=== PATIENT | female | born 1945 | race Caucasian/White ===

== ENCOUNTER 2020-11-12 08:30 | Day surgery (SDC) | payer OTHER, SELFPAY ==
[2020-11-12 09:06] VITALS: BP 141/59; PULSE 61; RESP 16; TEMP 35.9; O2SAT 99
[2020-11-12] MEDS: Tropicam./Phenyleph. (1/2.5%) 5 ML BTL OS ×3 (09:14→09:23)
--- NOTE | 2020-11-12 09:24 | W.ANESPRE ---
General Info Date of Service Date Performed: 11/12/20 Height: 5 ft 1.5 in Weight: 75.1 kg Body Mass Index (BMI): 30.7 Surgical Procedure: Operation Date: 11/12/20 11:40 Proposed Procedures Side Surgeon p Cataract Extraction with IOL Implant Left Ashkan Sanchez MD Meds Allergies and Home Medications Allergies Allergy/AdvReac Type Severity Reaction Status Date / Time esomeprazole AdvReac Intermediate Skin Rash Unverified 11/12/20 09:04 omeprazole AdvReac Intermediate Skin Rash Unverified 11/12/20 09:04 paraben AdvReac Intermediate Skin Rash Unverified 11/12/20 09:04 procaine AdvReac Intermediate Other (See Unverified 11/12/20 09:04 Comment) Home Medication Medication Instructions Recorded chlorthalidone 12.5 mg PO DAILY 11/08/20 pantoprazole 40 mg PO BID 11/08/20 Current Visit Medications: Current Medications Generic Name Dose Route Start Last Admin Trade Name Freq PRN Reason Stop Dose Admin Acetaminophen 1,000 mg 11/12/20 06:00 Acetaminophen 500 Mg Tab PO Q4H PRN PRN Miscellaneous Medication 0 ml 11/12/20 06:00 Prednisolone 1%, Moxifloxacin 0.5%, Nepafenac 0.1% 5ml Btl OS DIRECTED YADI Miscellaneous Medication 0 ml 11/12/20 06:00 11/12/20 09:23 Tropicam./Phenyleph. (1/2.5%) 5 Ml Btl OS 1 drp DIRECTED YADI Administration Tetracaine HCl 0 ml 11/12/20 06:00 Tetracaine 0.5% 4 Ml Btl OS DIRECTED YADI PFSH Active Problems Active Problems: Problem Status Onset Code Cortical cataract of left eye H26.9 Nuclear sclerotic cataract of left eye H25.12 Medical History Medical History Bilateral cataracts Essential hypertension Genital prolapse GERD (gastroesophageal reflux disease) Glaucoma Hemorrhoids, external, with complication Hepatitis C antibody test negative History of mammogram History of varicella as a child Hyperglycemia Hyperlipidemia Left breast mass Obesity Osteopenia Plantar fasciitis Vitamin D deficiency Surgical History Surgical History (Updated 11/12/20 @ 09:03 by Tyson Rodriguez) History of esophagogastroduodenoscopy (EGD) Hx of colonoscopy Hx of eye surgery Both eyes for glaucoma Tobacco Smoking/Tobacco Use Status: Former Tobacco Use Substance Use Substance use: Never Substance use type: does not use Vital Signs and Lab Results Vital Signs Most Recent Vital Signs in EMR: Most Recent Vital Signs Temp Pulse Resp BP Pulse Ox 35.9 C L 61 16 141/59 H 99 11/12/20 09:06 11/12/20 09:06 11/12/20 09:06 11/12/20 09:06 11/12/20 09:06 Lab Results Blood Type / Crossmatch: No Data to Display Complete Blood Count: No Data to Display Complete Metabolic Panel: No Data to Display Liver Function Panel: No Data to Display Coagulation Panel: No Data to Display Cardiac Panel: No Data to Display Arterial Blood Gas: No Data to Display Venous Blood Gas: No Data to Display Pancreas Panel: No Data to Display Thyroid Panel: No Data to Display Infectious Disease: No Data to Display Blood Cultures: No Data to Display Toxicology Panel: No Data to Display Anesthesia Assessment and Plan Anesthesia History Personal History: No History of Anesthesia Complications Family History: No Family History of Anesthesia Complications Exercise Tolerance Exercise Tolerance: Metabolic Equivalents>4 Cardiac & Pulmonary Exam Cardiac Exam: Normal S1/S2 Heart Sounds Pulmonary Exam: Clear Bilateral Breath Sounds Airway Exam Known Difficult Airway: No Mallampati Class: 2 Mouth Opening: Normal (> 3cm) Thyromental Distance: Greater than 3 cm Neck Range of Motion: Full ROM Neck Circumference: Normal Teeth Condition: Normal Dentition, Removable Dentures/Plates Upper and Removable Dentures/Plates Lower ASA Classification ASA Score: ASA 2 Emergency Case?: No NPO Status NPO Status: NPO Clears >2 hours, Solids >8 hours Anesthesia Plan Resuscitation Status: Full Code Anesthesia Technique: MAC Anesthesia Airway Planned: Natural Airway Monitors Used: Standard Monitors Preoperative Comments:: 75 yo female for cataract removal. discussed MKO, would like to proceed without.
[2020-11-12 09:35] VITALS: BMI 30.7
[2020-11-12] MEDS: Tetracaine 0.5% 4 ML BTL OS (10:15)
[2020-11-12] MEDS: Lidocaine 2% Jelly 6 ML SYR (10:15)
[2020-11-12] MEDS: Povidone-Iodine Ophth 30 ML BTL (10:16)
[2020-11-12] MEDS: Balanced Salt Soln.-PLUS 500 ML BAG (10:18)
[2020-11-12] MEDS: Duovisc Viscoelastic System EACH 1 EACH (10:18)
[2020-11-12] MEDS: Lidocaine 1% Pres-Free 5 ML VIAL (10:19)
--- NOTE | 2020-11-12 10:45 | W.PM.DSUDISC ---
Discharge Plan Disposition Patient Disposition: HOME Condition: Good Discharge Details Attending Provider: Ashkan Sanchez Primary Care Provider: Michelle Coto Home Meds and New Rx's Prescriptions: No Action chlorthalidone 25 mg tablet 12.5 mg PO DAILY RF: 0 pantoprazole 40 mg tablet,delayed release (DR/EC) 40 mg PO BID RF: 0 Discharge Instructions Stand Alone Forms: Post-op Topical Cataract, Miryam Luo (DSU) Discharge Orders Discharge Orders: Discharge Order (Routine); Ordered 11/12/20 Ordered By: Ashkan Sanchez DS: Diagnosis Discharge Diagnosis (1) Cortical cataract of left eye: Status: Resolved (2) Nuclear sclerotic cataract of left eye: Status: Resolved
--- NOTE | 2020-11-12 10:46 | ROE_ITS ---
Date of service: 11/12/20 Time of Service: 10:46 Operative Note Operative Note DATE OF PROCEDURE: 11/12/20 PRE-OP DIAGNOSIS: Nuclear/cortical cataract, left eye POST-OP DIAGNOSIS: same PROCEDURE: Cataract extraction using phacoemulsification with intraocular lens implant, left eye SURGEON: Ashkan Sanchez ANESTHESIA TYPE: Local By Surgeon and MAC Refer to Anesthesia Record PATHOLOGY: none sent COMPLICATIONS: None Patient was transported to: same day Patient's condition: stable Implants: Azeem Clareon [id number] Indications: Progressive decreased vision due to cataract, left eye Procedure Description: CATARACT SURGERY OPERATIVE REPORT PREOPERATIVE DIAGNOSIS: Nuclear/cortical cataract, left eye POSTOPERATIVE DIAGNOSIS: Same OPERATION: Cataract extraction using phacoemulsification with posterior chamber intraocular lens implant, left eye. IOL: IOL Coating Inspector/Model: Azeem Clareon [id number] IOL Power: + 18.5 diopters IOL Serial Number: [id number] Optic Diameter: 6.0mm Haptic/Overall Diameter: 13.0mm PHACO INFO: [employer] (MCG)urion Vision System with OZil and Active Fluidics Cumulative Dispersed Energy (CDE): 9.06 seconds SURGEON: Ashkan Sanchez MD, MARCIA ANESTHESIA: Monitored Anesthesia Care (MAC), with local sub-tenon's anesthetic infiltration COMPLICATIONS: None SPECIMENS: None INDICATIONS FOR PROCEDURE: The patient is a 75-year-old lady with history of diminished visual acuity in her left eye secondary to the development of nuclear and cortical cataract. She has a history of myopic astigmatism and has worn rigid gas permeable contact lenses in the past. The option of cataract surgery was offered to the patient and she felt she was symptomatic enough that she wished to proceed. She understands that she will likely need postoperative spectacles or contact lens to correct her a stigmatism for best possible vision. PROCEDURE: The correct surgical eye was identified and marked as the left eye and the pupil was dilated in the preoperative area using mydriatics and cycloplegics. The dilated pupil size was 7.0 mm. . She elected to proceed without oral sedation. The patient was brought to the operating room where cardiopulmonary monitoring was instituted and surgical time-out was performed, confirming the correct operative eye and IOL power. Topical anesthesia was administered and ophthalmic povidone-iodine 5% was instilled into the conjunctival fornices. Lidocaine gel was applied to the cornea and the johnny-ocular area was prepped with Betadine 10% solution and draped in the usual sterile fashion for intraocular surgery, including an aperture drape. A Tegaderm transparent film dressing was cut in half and used to cover the lashes and lid margins. Care was taken to sequester the lashes and lid margins under the Tegaderm dressing. A lid speculum was placed between the lids of the operative eye and the Philipp-Carlos operating microscope was maneuvered into position. Munir scissors were then used to make a conjunctival buttonhole approximately 6mm posterior to the limbus in the inferonasal quadrant. Blunt dissection was carried out to expose bare sclera, and a blunt-tipped sub-tenon?s anesthesia cannula was introduced and passed posteriorly along the globe where non- preserved plain lidocaine was injected into posterior sub-Tenon?s space. A sideport knife was used to make a paracentesis port superior/superiortemporally. Intraocular phenylephrine/lidocaine was injected into the anterior chamber. The anterior chamber was then filled with viscoelastic. A 2.4mm keratome knife was used to create a half-thickness groove at the limbus and then to construct a three-plane near-clear corneal tunnel extending 2.0mm into clear cornea in the temporal position. . A flap was raised on the anterior capsule and capsulorhexis forceps were used to complete a continuous curvilinear capsulorhexis of 5.0mm. Balanced salt solution was then used to perform cortical cleaving hydrodissection and nuclear hydrodelineation until the lens could be freely rotated within the capsular bag. The lens nucleus was then disassembled and removed within the capsular bag and iris plane using phacoemulsification. Residual cortical material was removed using the 45-degree angled silicone I/A tip with 0.3mm port. The posterior capsule was carefully polished to remove as much residual lens epithelial cells as safely possible. The capsular bag was then inflated and the anterior chamber deepened with viscoelastic. The lens implant described above was inserted into the capsular bag using the Azeem Autonome Injector. A Kuglen hook was used to dial the IOL into position. Residual viscoelastic was then removed first from posterior to the IOL, then from the anterior chamber using the I/A handpiece. The lens implant was noted to center nicely within the capsular bag. The incisions were stromally hydrated, and the anterior chamber was reformed using BSS. Then 0.5cc of moxifloxacin 1.0mg/ml were injected into the capsular bag and anterior chamber. The incisions were checked with a Weck spear and found to be secure. Several drops of ophthalmic povidone-iodine 5% were then applied to the eye followed by two drops of Imprimis combination prednisolone/moxifloxacin/nepafenac solution. The drapes were removed and a clear plastic protective eye shield was placed over the eye. The patient was then returned to Same Day Surgery in stable condition.
[2020-11-12 10:50] VITALS: BP 129/64; PULSE 63; RESP 16; TEMP 36.1; O2SAT 98
--- NOTE | 2020-11-12 10:56 | W.ANESPOSTOP ---
Postoperative Evaluation Date, Time and Location Date Performed: 11/12/20 Time Performed: 10:50 Patient Location: Day Surgery Unit Vital Signs Most Recent Imported Vital Signs: Most Recent Vital Signs Temp Pulse Resp BP Pulse Ox 36.1 C L 63 16 129/64 98 11/12/20 10:50 11/12/20 10:50 11/12/20 10:50 11/12/20 10:50 11/12/20 10:50 Pain Score Most Recent Pain Score: Most Recent Pain Score Pain Level 0 11/12/20 10:50 Assessment Mental Status: Awake (Alert & Oriented to Patient Baseline) Airway and Respiratory Function: Patent airway with normal (patient baseline) respiratory exam Cardiovascular Function: Hemodynamically Stable Hydration Status: Adequately Hydrated Nausea & Vomiting: No Nausea or Vomiting Pain: Pt. Denies Any Pain Peripheral Nerve Block: Patient did not receive a nerve block
== END 2020-11-12 11:05 | disposition home or self-care (01) ==
PROVIDERS: PCP Physician Assistant; Visit Provider Ophthalmology
PROC: (CPT 66984; principal; 2020-11-12 11:30)
DX: H25.12 Age-related nuclear cataract, left eye (principal); I10 Essential (primary) hypertension; K21.9 Gastro-esophageal reflux disease without esophagitis
CPT/HCPCS: 66984; V2632

== ENCOUNTER 2021-01-11 02:48 | Outpatient (CLI) | payer OTHER, SELFPAY ==
[2021-01-11 13:27] LABS: Source Nasal/Nares
[2021-01-11 16:55] LABS: COVID-19 PCR Negative (Negative)
== END 2021-01-11 02:49 | disposition home or self-care (01) ==
PROVIDERS: PCP Physician Assistant; Visit Provider Ophthalmology
DX: Z20.822 Contact with and (suspected) exposure to COVID-19 (principal); Z01.818 Encounter for other preprocedural examination
CPT/HCPCS: 87635

== ENCOUNTER 2021-01-14 08:28 | Day surgery (SDC) | payer OTHER, SELFPAY ==
[2021-01-14 09:21] VITALS: BP 145/63; PULSE 62; RESP 16; TEMP 36.3; O2SAT 99
--- NOTE | 2021-01-14 09:24 | W.ANESPRE ---
General Info Date of Service Date Performed: 01/14/21 Height: 5 ft 3 in Weight: 74.843 kg Body Mass Index (BMI): 29.2 Surgical Procedure: Operation Date: 01/14/21 11:40 Proposed Procedures Side Surgeon p Cataract Extraction with IOL Implant Right Ashkan Sanchez MD Meds Allergies and Home Medications Allergies Allergy/AdvReac Type Severity Reaction Status Date / Time esomeprazole AdvReac Intermediate Skin Rash Unverified 01/10/21 15:44 omeprazole AdvReac Intermediate Skin Rash Unverified 01/10/21 15:44 paraben AdvReac Intermediate Skin Rash Unverified 01/10/21 15:44 procaine AdvReac Intermediate Other (See Unverified 01/10/21 15:44 Comment) Home Medication Medication Instructions Recorded chlorthalidone 12.5 mg PO DAILY 11/08/20 pantoprazole 40 mg PO BID 11/08/20 Current Visit Medications: Current Medications Generic Name Dose Route Start Last Admin Trade Name Freq PRN Reason Stop Dose Admin Acetaminophen 1,000 mg 01/14/21 06:00 Acetaminophen 500 Mg Tab PO Q4H PRN PRN Miscellaneous Medication 0 ml 01/14/21 06:00 Prednisolone 1%, Moxifloxacin 0.5%, Nepafenac 0.1% 5ml Btl OD DIRECTED [facility] Miscellaneous Medication 0 ml 01/14/21 06:00 Tropicam./Phenyleph. (1/2.5%) 5 Ml Btl OD DIRECTED YADI Tetracaine HCl 0 ml 01/14/21 06:00 Tetracaine 0.5% 4 Ml Btl OD DIRECTED [facility] PFSH Active Problems Active Problems: Problem Status Onset Code Cortical cataract of right eye H26.9 Nuclear sclerotic cataract of right eye H25.11 Cortical cataract of left eye H26.9 Nuclear sclerotic cataract of left eye H25.12 Medical History Medical History Bilateral cataracts Essential hypertension Genital prolapse GERD (gastroesophageal reflux disease) Glaucoma Hemorrhoids, external, with complication Hepatitis C antibody test negative History of mammogram History of varicella as a child Hyperglycemia Hyperlipidemia Left breast mass Obesity Osteopenia Plantar fasciitis Vitamin D deficiency Surgical History Surgical History History of esophagogastroduodenoscopy (EGD) Hx of colonoscopy Hx of eye surgery Both eyes for glaucoma Tobacco Smoking/Tobacco Use Status: Former Tobacco Use Substance Use Substance use: Never Substance use type: does not use Vital Signs and Lab Results Lab Results Blood Type / Crossmatch: No Data to Display Complete Blood Count: No Data to Display Complete Metabolic Panel: No Data to Display Liver Function Panel: No Data to Display Coagulation Panel: No Data to Display Cardiac Panel: No Data to Display Arterial Blood Gas: No Data to Display Venous Blood Gas: No Data to Display Pancreas Panel: No Data to Display Thyroid Panel: No Data to Display Infectious Disease: Coronavirus (COVID-19)(PCR) Negative (Negative) 01/11/21 11:13 01/11/21 Coronavirus 2019 Source Nasal/Nares 01/11/21 11:13 01/11/21 Blood Cultures: No Data to Display Toxicology Panel: No Data to Display Anesthesia Assessment and Plan Anesthesia History Personal History: No History of Anesthesia Complications Family History: No Family History of Anesthesia Complications Exercise Tolerance Exercise Tolerance: Metabolic Equivalents>4 Pertinent Negatives Pertinent Negatives: No Symptoms of GERD, No Major Cardiovascular Symptoms or Complaints, No Major Pulmonary Symptoms or Complaints and No History of CVA/TIA Cardiac & Pulmonary Exam Cardiac Exam: Normal S1/S2 Heart Sounds Pulmonary Exam: Clear Bilateral Breath Sounds Airway Exam Known Difficult Airway: No Mallampati Class: 2 Mouth Opening: Normal (> 3cm) Thyromental Distance: Greater than 3 cm Neck Range of Motion: Full ROM Neck Circumference: Normal Teeth Condition: Normal Dentition, Removable Dentures/Plates Upper and Removable Dentures/Plates Lower ASA Classification ASA Score: ASA 3 Emergency Case?: No NPO Status NPO Status: NPO Clears >2 hours, Solids >8 hours Anesthesia Plan Resuscitation Status: Full Code Anesthesia Technique: MAC Anesthesia Airway Planned: Natural Airway Monitors Used: Standard Monitors
[2021-01-14] MEDS: Tropicam./Phenyleph. (1/2.5%) 5 ML BTL OD ×3 (09:32→09:42)
[2021-01-14 10:30] VITALS: BMI 29.2
--- NOTE | 2021-01-14 10:30 | W.ANESPOSTOP ---
Postoperative Evaluation Date, Time and Location Date Performed: 01/14/21 Time Performed: 10:58 Patient Location: Day Surgery Unit Vital Signs Most Recent Imported Vital Signs: Most Recent Vital Signs Temp Pulse Resp BP Pulse Ox 36.3 C L 62 16 145/63 H 99 01/14/21 09:21 01/14/21 09:21 01/14/21 09:21 01/14/21 09:21 01/14/21 09:21 Most Recent Manually Entered Vital Signs: Adult Blood Pressure: 142/74 Heart Rate: 63 Respirations: 18 Oxygen Saturation (%): 99 Temperature (C): 35.9 C Pain Score (0-10 Scale): 0 Pain Score Most Recent Pain Score: Most Recent Pain Score Pain Level 0 01/14/21 09:21 Assessment Mental Status: Awake (Alert & Oriented to Patient Baseline) Airway and Respiratory Function: Patent airway with normal (patient baseline) respiratory exam Cardiovascular Function: Hemodynamically Stable Hydration Status: Adequately Hydrated Nausea & Vomiting: No Nausea or Vomiting Pain: Pt. Denies Any Pain Peripheral Nerve Block: Other (Local by Dr. Sanchez)
[2021-01-14] MEDS: Tetracaine 0.5% 4 ML BTL OD (10:34)
[2021-01-14] MEDS: Balanced Salt Soln.-PLUS 500 ML BAG (10:34)
[2021-01-14] MEDS: Lidocaine 1% Pres-Free 5 ML VIAL (10:35)
[2021-01-14] MEDS: Duovisc Viscoelastic System EACH 1 EACH (10:35)
[2021-01-14] MEDS: Lidocaine 2% Jelly 6 ML SYR (10:36)
[2021-01-14] MEDS: Povidone-Iodine Ophth 30 ML BTL (10:37)
[2021-01-14 10:50] VITALS: BP 142/74; PULSE 63; RESP 18; TEMP 35.9; O2SAT 99
--- NOTE | 2021-01-14 10:51 | ROE_ITS ---
Date of service: 01/14/21 Time of Service: 10:51 Operative Note Operative Note DATE OF PROCEDURE: 11/12/20 PRE-OP DIAGNOSIS: Nuclear/cortical cataract, right eye POST-OP DIAGNOSIS: same PROCEDURE: Cataract extraction using phacoemulsification with intraocular lens implant, right eye SURGEON: Ashkan Sanchez ANESTHESIA TYPE: Local By Surgeon and MAC Refer to Anesthesia Record ESTIMATED BLOOD LOSS: 0 PATHOLOGY: none sent COMPLICATIONS: None Patient was transported to: same day Patient's condition: stable Implants: [employer]rol [employer] Errol/DOMENICA Tecnis [id number] Indications: Progressive visual loss due to cataract, right eye Procedure Description: CATARACT SURGERY OPERATIVE REPORT PREOPERATIVE DIAGNOSIS: 1. Nuclear/cortical cataract, right eye POSTOPERATIVE DIAGNOSIS: Same OPERATION: 1. Cataract extraction using phacoemulsification with posterior chamber intraocular lens implant, right eye. IOL: IOL Director Of Financial Reporting/Model: [employer] Errol / DOMENICA Tecnis [id number] IOL Power: + 19.5 diopters IOL Serial Number: [id number] Optic Diameter: 6.0mm Haptic/Overall Diameter: 13.0mm PHACO INFO: Azeem MUJINurion Vision System with OZil and Active Fluidics Cumulative Dispersed Energy (CDE): 9.57 seconds SURGEON: Ashkan Sanchez MD, MARCIA ANESTHESIA: Monitored Anesthesia Care (MAC), with local sub-tenon's anesthetic infiltration COMPLICATIONS: None SPECIMENS: None INDICATIONS FOR PROCEDURE: The patient is a 76-year-old lady with history of diminished visual acuity in both eyes secondary to the development of bilateral nuclear and cortical cataract. She has already undergone cataract surgery in the left eye and is doing well postoperatively. She now presents for cataract surgery in the right eye. PROCEDURE: The correct surgical eye was identified and marked as the right eye and the pupil was dilated in the preoperative area using mydriatics and cycloplegics. The dilated pupil size was 6.5 mm. Oral sedation was administered in the form of an Imprimis MKO Melt (midazolam 3mg/ketamine 25mg/ondansetron 2mg). The patient was brought to the operating room where cardiopulmonary monitoring was instituted and surgical time-out was performed, confirming the correct operative eye and IOL power. Topical anesthesia was administered and ophthalmic povidone-iodine 5% was instilled into the conjunctival fornices. Lidocaine gel was applied to the cornea and the johnny-ocular area was prepped with Betadine 10% solution and dr aped in the usual sterile fashion for intraocular surgery, including an aperture drape. A Tegaderm transparent film dressing was cut in half and used to cover the lashes and lid margins. Care was taken to sequester the lashes and lid margins under the Tegaderm dressing. A lid speculum was placed between the lids of the operative eye and the Philipp-Carlos operating microscope was maneuvered into position. Munir scissors were then used to make a conjunctival buttonhole approximately 6mm posterior to the limbus in the inferonasal quadrant. Blunt dissection was carried out to expose bare sclera, and a blunt-tipped sub-tenon?s anesthesia cannula was introduced and passed posteriorly along the globe where non- preserved plain lidocaine was injected into posterior sub-Tenon?s space. A sideport knife was used to make a paracentesis port inferotemporally. Intraocular phenylephrine/lidocaine was injected into the anterior chamber. The anterior chamber was filled with viscoelastic. A 2.4mm keratome knife was used to create a half-thickness groove at the limbus and then to construct a three- plane near-clear corneal tunnel extending 2.0mm into clear cornea superiortemporally. A flap was raised on the anterior capsule and capsulorhexis forceps were used to complete a continuous curvilinear capsulorhexis of 5.0 mm. Balanced salt solution was then used to perform cortical cleaving hyd rodissection and nuclear hydrodelineation until the lens could be freely rotated within the capsular bag. The lens nucleus was then disassembled and removed within the capsular bag and iris plane using phacoemulsification. Residual cortical material was removed using the I/A handpiece. The posterior capsule was carefully polished to remove as much residual lens epithelial cells as safely possible. The capsular bag was then inflated and the anterior chamber deepened with viscoelastic. The lens implant described above was inserted into the capsular bag using the DOMENICA [place] Injector. A Kuglen hook was used to dial the IOL into position. Residual viscoelastic was then removed first from posterior to the IOL, then from the anterior chamber using the I/A handpiece. The lens implant was noted to center nicely within the capsular bag. The incisions were stromally hydrated, and the anterior chamber was reformed using BSS. Then 0.5cc of moxifloxacin 1.0mg/ml were injected into the capsular bag and anterior chamber. The incisions were checked with a Weck spear and found to be secure. Several drops of ophthalmic povidone-iodine 5% were then applied to the eye followed by two drops of Imprimis combination prednisolone/moxifloxacin/nepafenac solution. The drapes were removed and a clear plastic protective eye shield was placed over the eye. The patient was then returned to Same Day Surgery in stable condition.
--- NOTE | 2021-01-14 10:51 | W.PM.DSUDISC ---
Discharge Plan Disposition Patient Disposition: HOME Condition: Good Discharge Details Attending Provider: Ashkan Sanchez Primary Care Provider: Michelle Coto Home Meds and New Rx's Prescriptions: No Action chlorthalidone 25 mg tablet 12.5 mg PO DAILY RF: 0 pantoprazole 40 mg tablet,delayed release (DR/EC) 40 mg PO BID RF: 0 Discharge Instructions Stand Alone Forms: Post-op Topical Cataract Discharge Orders Discharge Orders: Discharge Order (Routine); Ordered 01/14/21 Ordered By: Ashkan Sanchez DS: Diagnosis Discharge Diagnosis (1) Cortical cataract of right eye: Status: Resolved (2) Nuclear sclerotic cataract of right eye: Status: Resolved
[2021-01-14 11:22] VITALS: BP 142/74; PULSE 63; RESP 18; TEMPC 35.9; O2SAT 99
== END 2021-01-14 11:10 | disposition home or self-care (01) ==
PROVIDERS: PCP Physician Assistant; Visit Provider Ophthalmology
PROC: (CPT 66984; principal; 2021-01-14 11:30)
DX: H25.11 Age-related nuclear cataract, right eye (principal); H40.9 Unspecified glaucoma; I10 Essential (primary) hypertension
CPT/HCPCS: 66984; V2632